=== PATIENT | female | born 1955 | race Caucasian/White ===

== ENCOUNTER 2022-09-27 10:19 | Emergency (ER) | payer OTHER ==
[2022-09-27 11:10] VITALS: BP 169/84; PULSE 86; RESP 18; TEMP 97.8; BMI 28.3
[2022-09-27] MEDS ORDERED: IBUPROFEN 600 MG TABLET (FP) PO ONE (12:31)
== END 2022-09-27 19:00 | disposition home or self-care (01) ==
LOC: JER 10:19
DX: B34.9 Viral infection, unspecified (principal)
CPT/HCPCS: 0241U-QW; 71046-TC-FY; 71250-TC; 82962; 87651; 99284-25